=== PATIENT | male | born 2000 | race Caucasian/White ===

== ENCOUNTER 2018-07-01 13:15 | Outpatient (RCR) | payer BC ==
[~2018-07-01 13:15] MED LIST: ADDERALL20 MG PO; NORCO 325 MG-51 TAB PO
== END 2018-07-20 | disposition home or self-care (01) ==
LOC: WSOT
DX: S62.324D Displaced fracture of shaft of fourth metacarpal bone, right hand, subsequent encounter for fracture with routine healing (principal); S62.326D Displaced fracture of shaft of fifth metacarpal bone, right hand, subsequent encounter for fracture with routine healing; W10.8XXD Fall (on) (from) other stairs and steps, subsequent encounter; Z96.7 Presence of other bone and tendon implants